=== PATIENT | female | born 1995 | race Caucasian/White ===

== ENCOUNTER 2017-03-04 16:04 | Emergency (ER) | payer MEDICAID ==
[~2017-03-04] VITALS: Ht 149.9 cm; Wt 53.5 kg
[2017-03-04 17:01] VITALS: BP 112/87
== END 2017-03-04 17:01 | disposition home or self-care (01) ==
LOC: ED 16:04
DX: S51.812D Laceration without foreign body of left forearm, subsequent encounter (principal); X58.XXXD Exposure to other specified factors, subsequent encounter; Y99.8 Other external cause status; Y92.89 Other specified places as the place of occurrence of the external cause